=== PATIENT | female | born 1955 | race Caucasian/White ===

== ENCOUNTER → 2020-07-31 09:29 | Outpatient (BNVA) | payer OTHER, SELFPAY | PROVIDERS: PCP Internal Medicine; Referring Provider Internal Medicine; Visit Provider Anesthesiology | DX: G89.4 Chronic pain syndrome (principal); M54.5 Low back pain; M96.1 Postlaminectomy syndrome, not elsewhere classified; M46.1 Sacroiliitis, not elsewhere classified; C85.10 Unspecified B-cell lymphoma, unspecified site; Z79.891 Long term (current) use of opiate analgesic | CPT/HCPCS: 99204 ==

== ENCOUNTER 2020-08-08 12:04 | Day surgery (SDC) | payer OTHER, SELFPAY ==
[2020-08-06 09:56] VITALS: BMI 27.0
--- NOTE | 2020-08-06 14:18 | P.CONAN_ITS ---
Documented by User: Kathrine Ortiz 08/07/20 09:29 HPI - Anesthesia Eval Consult details Narrative: 64yo F for lumbar spinal cord stimulator trial Daily opioids *NO IV/BP on RIGHT* PMFSH Past Medical History Medical History Anxiety and depression Chronic pain syndrome Chronic, continuous use of opioids History of weakness of extremity Hx of basal cell carcinoma Hx of concussion Hx of lymphoma Hyperlipemia Large B-cell lymphoma Low back pain Sacroiliitis Surgical History Surgical History History of back surgery History of reconstruction of right breast History of surgery on wrist Hx of cataract extraction Hx of colonoscopy Hx of right mastectomy Social History Social History Smoking Status: Never smoker Substance Use Frequency: Chronic Longstanding Advance Directives: No Advance Directives Information Provided: No Advance Directives on File: No Meds Allergies Allergy/AdvReac Type Severity Reaction Status Date / Time clarithromycin [From Biaxin] Allergy Fainting Verified 08/08/20 12:28 simvastatin Allergy Hives Verified 08/08/20 12:28 Home Medications Medication Instructions Recorded Confirmed Type docusate sodium 100 mg capsule 100 mg PO BID 07/31/20 08/06/20 History duloxetine 60 mg capsule,delayed 60 mg PO BID 07/31/20 08/06/20 History release estradiol 10 mcg vaginal tablet 10 mcg VAGINAL 2XW 07/31/20 08/06/20 History fenofibrate 160 mg tablet 160 mg PO DAILY 07/31/20 08/06/20 History ibuprofen 800 mg tablet 800 mg PO BID PRN 07/31/20 08/06/20 History metaxalone 800 mg tablet 800 mg PO TID 07/31/20 08/06/20 History polyethylene glycol 3350 17 17 g PO DAILY 07/31/20 08/06/20 History gram/dose oral powder fentanyl 1 patch TOPICAL Q3D 08/06/20 08/06/20 History lidocaine 1 patch TOPICAL DAILY 08/06/20 08/06/20 History oxycodone 2 tab PO Q8H PRN 08/06/20 08/06/20 History Exam Exam Date and Time: August 06, 2020 1418 Height,Weight and Vital Signs: Height 5 ft 1 in Weight 64.864 kg Assessment and Plan Assessment Anesthesia Assessment: Chart Reviewed Documented by User: Mikhail Iglesias MD 08/08/20 17:26 [facility] Past Medical History Medical History Anxiety and depression Chronic pain syndrome Chronic, continuous use of opioids History of weakness of extremity Hx of basal cell carcinoma Hx of concussion Hx of lymphoma Hyperlipemia Large B-cell lymphoma Low back pain Sacroiliitis Surgical History Surgical History History of back surgery History of reconstruction of right breast History of surgery on wrist Hx of cataract extraction Hx of colonoscopy Hx of right mastectomy Social History Social History Smoking Status: Never smoker Substance Use Frequency: Chronic Longstanding Advance Directives: No Advance Directives Information Provided: No Advance Directives on File: No Meds Allergies Allergy/AdvReac Type Severity Reaction Status Date / Time clarithromycin [From Biaxin] Allergy Fainting Verified 08/08/20 12:28 simvastatin Allergy Hives Verified 08/08/20 12:28 Home Medications Medication Instructions Recorded Confirmed Type docusate sodium 100 mg capsule 100 mg PO BID 07/31/20 08/06/20 History duloxetine 60 mg capsule,delayed 60 mg PO BID 07/31/20 08/06/20 History release estradiol 10 mcg vaginal tablet 10 mcg VAGINAL 2XW 07/31/20 08/06/20 History fenofibrate 160 mg tablet 160 mg PO DAILY 07/31/20 08/06/20 History ibuprofen 800 mg tablet 800 mg PO BID PRN 07/31/20 08/06/20 History metaxalone 800 mg tablet 800 mg PO TID 07/31/20 08/06/20 History polyethylene glycol 3350 17 17 g PO DAILY 07/31/20 08/06/20 History gram/dose oral powder fentanyl 1 patch TOPICAL Q3D 10/14/20 10/14/20 History lidocaine 1 patch TOPICAL DAILY 08/06/20 08/06/20 History oxycodone 2 tab PO Q8H PRN 08/06/20 08/06/20 History Exam Airway Mallampati Class: II TM Dist: >3cm Neck ROM: Full Loose/Missing/Broken Teeth: No Heart: rrr Lungs: nl Assessment and Plan Assessment Anesthesia Assessment: Anesthesia Plan Discussed and Chart Reviewed Final Anesthetic Review NPO: Yes ASA Class: II Final Preanesthetic Review: No Changes in Pt Med Stat, Meds/Allgs Chart Reviewed, Consent Obtained/Reviewed and Anes Risks/Benef Reviewed Patient Risk: Low Procedure Risk: Low Anesthetic Plan Anesthetic Plan: MAC: Disposition: Standard PACU
[2020-08-08] VITALS (22 sets, daily range): BP systolic 135–189; BP diastolic 69–94; PULSE 87–103; RESP 8–22; TEMP 36.6; O2SAT 89–100
[2020-08-08] MEDS: Lactated Ringers 1,000 ML 100 ML IVCONT (13:06)
--- NOTE | 2020-08-08 16:48 | P.HPSUR_ITS ---
Pre-Procedural Eval Section A The patient is an INPATIENT: No The History & Physical has been completed within 30 days and I have reviewed it.: No Section B Chief Complaint: large B cell lymphoma, chronic pain syndrome Details of Present Illness: lymphoma, spinal pain Postlaminectomy syndrome Relevant Family History (Specify if Yes): No Relevant Social History: None Present Medications: None Medical History: No relevant PMH History of Previous Operations: No relevant previous surgery Allergies: Allergies Allergy/AdvReac Type Severity Reaction Status Date / Time clarithromycin [From Biaxin] Allergy Fainting Verified 08/08/20 12:28 simvastatin Allergy Hives Verified 08/08/20 12:28 Review of Systems Sugical H&P ROS: Negative: Constitution, Cardiovascular, Respiratory, Neurol ogical, Psychiatric, Allergic/Immunologic, Gastrointestinal, Genitourinary, Integumentary, Endocrine and Eyes/Ears/Nose/Throat and Yes, Specify: Hem-Onc ( lymphoma with MTs) and Musculoskeletal ( postlaminectomy syndrome) Exam Surgical H&P Exam: Normal: HEENT, Normal: Heart, Normal: Lungs, Normal: Extremities, Normal: Abdomen, Normal: Skin and Normal: Neurological Plan Diagnosis/Plan: Unchanged Patient has been examined and remains a candidate for the planned procedure
--- NOTE | 2020-08-08 17:39 | FL_ITS ---
EXAMINATION: XR FLUOROSCOPY WITH IMAGES CLINICAL INFORMATION: Spinal stimulator trial COMPARISON: None. TECHNIQUE: Fluoroscopy performed by Dr. Jong Richmond. Fluoroscopy time: 2.7 minutes DAP: 28.0 Gycm2 Images: 3 FINDINGS: There are 2 spinal stimulator leads seen overlying lower thoracic spine approximately levels of lower T7 and lower T8. IMPRESSION: Fluoroscopy for pain management procedure.
--- NOTE | 2020-08-08 18:09 | P.CONAN_ITS ---
[facility] [place] Past Medical History Medical History Anxiety and depression Chronic pain syndrome Chronic, continuous use of opioids History of weakness of extremity Hx of basal cell carcinoma Hx of concussion Hx of lymphoma Hyperlipemia Large B-cell lymphoma Low back pain Sacroiliitis Surgical History Surgical History History of back surgery History of reconstruction of right breast History of surgery on wrist Hx of cataract extraction Hx of colonoscopy Hx of right mastectomy Social History Social History Smoking Status: Never smoker Substance Use Frequency: Chronic Longstanding Advance Directives: No Advance Directives Information Provided: No Advance Directives on File: No Meds Allergies Allergy/AdvReac Type Severity Reaction Status Date / Time clarithromycin [From Biaxin] Allergy Fainting Verified 08/08/20 12:28 simvastatin Allergy Hives Verified 08/08/20 12:28 Home Medications Medication Instructions Recorded Confirmed Type docusate sodium 100 mg capsule 100 mg PO BID 07/31/20 08/06/20 History duloxetine 60 mg capsule,delayed 60 mg PO BID 07/31/20 08/06/20 History release estradiol 10 mcg vaginal tablet 10 mcg VAGINAL 2XW 07/31/20 08/06/20 History fenofibrate 160 mg tablet 160 mg PO DAILY 07/31/20 08/06/20 History ibuprofen 800 mg tablet 800 mg PO BID PRN 07/31/20 08/06/20 History metaxalone 800 mg tablet 800 mg PO TID 07/31/20 08/06/20 History polyethylene glycol 3350 17 17 g PO DAILY 07/31/20 08/06/20 History gram/dose oral powder fentanyl 1 patch TOPICAL Q3D 08/06/20 08/06/20 History lidocaine 1 patch TOPICAL DAILY 08/06/20 08/06/20 History oxycodone 2 tab PO Q8H PRN 08/06/20 08/06/20 History Exam Exam Date and Time: August 08, 2020 180 Height,Weight and Vital Signs: Height 5 ft 1 in Weight 64.864 kg Last Vital Signs Temp 98 F 08/08/20 12:32 Pulse 100 08/08/20 12:32 Resp 16 08/08/20 12:32 BP 135/69 08/08/20 12:32 Pulse Ox 96 08/08/20 12:32
--- NOTE | 2020-08-08 19:13 | PM.OP ---
Brief Operative Note Date of procedure: 08/08/20 Pre-op diagnosis: Postlaminectomy syndrome, chronic pain syndrome, lymphoma. Post-op diagnosis: same Procedure: Trial of spinal cord stimulator NEVRO. Implants: NEVRO spinal cord stimulator epidural leads. Surgeon: Jong Richmond MD Anesthesia: GLMA Estimated blood loss (mL): 0 IV fluids (mL): 1,400 Urine output (mL): 0 Pathology: none sent Condition: stable
[2020-08-08] MEDS: dexAMETHasone sod phosphate 10 MG in 0.9 % Sodium Chloride 50 ML 204 MG IV (19:33)
[2020-08-08] MEDS: fentaNYL citrate/PF 100 MCG/2 ML VIAL 25 MCG IVPUSH ×3 (19:46→20:01)
[2020-08-08] MEDS: HYDROmorphone HCl 0.5 MG/0.5 ML SYRINGE IVPUSH ×2 (20:22→20:40)
--- NOTE | 2020-08-09 14:34 | HO.POSTANES ---
Post Anesthesia Evaluation Post Anesthesia Evaluation Vital Signs: 140/80; 88;15;99%;97.8 Anesthesia: General LMA Mental Status: Awake Pain Control: Satisfactory Nausea/Vomiting: None Hydration: Adequate Anesthesia-Related Issues: No Anes. Related Issues
--- NOTE | 2020-08-20 16:59 | W.PM.OPN ---
Operative Note Operative Note Narrative: Indication for the procedure: Degenerative disc disease of lumbar spine. Spondylosis of lumbar spine with radiculopathy. Chronic pain syndrome. Spinal lumbar radiculopathy. Mr. Yanez is suffering for long period of time from degenerative disc disease of lumbar spine with radiculopathy into the left lower extremity. He had multiple injections which were fading ineffectiveness. He had medical management, physical therapy, and other procedures none of which were helping him lately with his pain. He agreed to get a trial of spinal cord stimulation. Name of the surgery: Trial of spinal cord stimulation (NEVRO) . Preoperative diagnosis: The same as indication. Postoperative diagnosis: the same as indication. Allergies CLARITHROMYCIN, SIMVASTATIN. Anesthesia GENERAL ANESTHESIA Preoperative antibiotic: Vancomycin 1 g IV. Postoperatively patient will continue with clindamycin 300 mg every 6 hours for the next 7 days. Patient will take probiotics in between his antibiotic doses. After obtaining informed consent with explanation to the patient about the risks of bleeding, infection, epidural hematoma, epidural abscess, failure to reduce the pain, PERIPHERAL NERVE ROOT IRRITATION, POST DURAL PUNCTURE HEADACHE AND OTHER UNSPECIFIED COMPLICATIONS the patient was brought to the operating room. SHe was positioned SUPINE on the STRETCH and [place] [employer] monitors were applied to the patient. SHE WAS INDUCED WITH GENERAL ANESTHESIA AND ENDOTRACHEAL INTUBATION WAS PERFORMED. After that she was transferred prone on the operating table all pressure points were protected. Time-out was performed which delineated proper procedure proper patient and proper site of the procedure , need for antibiotics , risk of fire.. The patient's back was prepped with ChloraPrep twice and the area of the procedure was draped with large abdominal fenestrated drape covering the full body of the patient. Sterilely draped C-arm was brought over operating field and sq picture of upper lumbar vertebra is was obtained on the screen. The 1st rib-bearing vertebral on the screen was considered to be T12 vertebra. Counting down from the position of this vertebra location of the L2 and L3 vertebra as were delineated. The upper margin of L1 lamina on the right was chosen as the point of entrance of epidural needle-the target. Location of the pedicle of the L2 vertebra on the right was chosen as the point of entrance of the needles. 25 gauge 1&1/2 inch needle was used to inject skin and subcutaneous tissues of the patient in the projection of bilateral lowest point of the pedicles with a mixture of local anesthetics lidocaine 2% and bupivacaine 0.5% 1-1. Attention was attracted to the lowest point of the pedicle 1st on the right. Small everett with the 11 blade scalpel was performed on the skin. After that 14 gauge 10 cm needle was inserted through the skin and started to advanced to midline epidural space in T12-L1 interspace. When needle gently touched the upper border of the right lamina close to the spinous processes, the stylet of the needle was removed and the loss of resistance syringe was connected to the needle. Further needle advancement was performed on lateral view with loss of resistance technique as a 2nd verification of the needle location. Guitar wire was inserted into the needle, the patient moved in response to this intervention. Intrathecal position of the guitar wire was suspected. The needle was withdrawn. Small amount of CSF appeared at the hub of the needle. The needle was withdrawn and pressure was applied. Then attention was concentrated on L1-L2 interspace. L3 pedicle now was chosen as the start of the needle advancement. The same 14 gauge 10 cm needle was inserted through the skin and started to advance to L1-L2 interspace. Loss of resistance technique was used when the needle appeared in in the projection of the interlaminar space, guitar wire and loss of resistance technique to air were used to locate epidural space. Epidural lead was inserted through the needle and advanced in the position of T8 vertebra slightly right to the midline.. When epidural lead reached top of T8 vertebra the advancement stopped. After that the procedure was repeated in the same very fashion on the left side. Of this time the epidural leadwas advanced to T9 bottom projection. Final position of the needles in the posterior epidural space close to midline bilaterally on AP view and in the posterior epidural space on lateral view was demonstrated on the screen and saved for further examination. The nitinol stylets were removed from the needles and the electrodes were connected to testing device. Impedance was deemed appropriate. The epidural needles were removed a and anchoring devices were advanced on the epidural leads. Anchoring devices were sutured to the skin with 2 silk sutures and then anchoring screw was used to fix the epidural leads inside the anchor. Sterile dressing using bacitracin ointment was applied. Patient was transferred to the stretcher, positioned supine, awakened, extubated and transferred to PACU for recovery. Findings: Nonspecific. Fluids: 600 mL IV. EBL: None. Dictating physician: MD Marisol. Operating physician: MD Marisol. DISPOSITION: Patient tolerated procedure very well, she was transferred to recovery. She reported severe pain in bilateral lower extremities mostly on the left. That would correspond to guitar wire spreading into the left side of the patient spinal canal. Because of the lack of the resources to treat this patient at night it [facility] the patient was transferred to [facility] for further care.
== END 2020-08-08 23:59 | disposition home or self-care (01) ==
PROVIDERS: Anesthesiology; PCP Internal Medicine; Visit Provider Internal Medicine
PROC: (CPT 63650; principal; 2020-08-08 13:20)
DX: M96.1 Postlaminectomy syndrome, not elsewhere classified (principal); M47.26 Other spondylosis with radiculopathy, lumbar region; G89.4 Chronic pain syndrome; G89.18 Other acute postprocedural pain; M79.605 Pain in left leg; M79.604 Pain in right leg; C83.30 Diffuse large B-cell lymphoma, unspecified site; Z79.899 Other long term (current) drug therapy
CPT/HCPCS: 63650 ×2; C1897; J0690; J1100; J1170; J1200; J2405; J3010

== ENCOUNTER → 2020-08-14 11:57 | Outpatient (BNVA) | payer OTHER, SELFPAY | PROVIDERS: PCP Internal Medicine; Referring Provider Internal Medicine; Visit Provider Anesthesiology | DX: C85.10 Unspecified B-cell lymphoma, unspecified site (principal); M54.5 Low back pain; G89.4 Chronic pain syndrome; M46.1 Sacroiliitis, not elsewhere classified; Z79.891 Long term (current) use of opiate analgesic | CPT/HCPCS: 99214 ==

== ENCOUNTER 2021-10-08 11:15 | Outpatient (REF) | payer OTHER, SELFPAY ==
[2021-10-08 12:20] LABS: Influenza A PCR NEGATIVE (Negative); Influenza B PCR NEGATIVE (Negative); Resp Syncy Virus RNA Qual PCR NEGATIVE (Negative); SARS COV2 PCR INHOUSE NEGATIVE (Negative)
== END 2021-10-08 11:16 | disposition home or self-care (01) ==
LOC: HO.LNP 11:15
PROVIDERS: Visit Provider Physician Assistant
DX: Z20.822 Contact with and (suspected) exposure to COVID-19 (principal); R05.9 Cough, unspecified
CPT/HCPCS: 0241U

== ENCOUNTER 2021-10-27 10:08 | Outpatient (REF) | payer OTHER, SELFPAY ==
--- NOTE | ~2021-10-27 | XR_ITS ---
EXAMINATION: XR CHEST CLINICAL INFORMATION: Chronic cough COMPARISON: None TECHNIQUE: 2 views of the chest were obtained. FINDINGS: No significant abnormality is noted involving the heart, lungs, mediastinum, bony thorax or soft tissues. XR/XR chest 2V IMPRESSION: Unremarkable chest examination.
[2021-10-27 13:17] LABS: Influenza A PCR NEGATIVE (Negative); Influenza B PCR NEGATIVE (Negative); Resp Syncy Virus RNA Qual PCR NEGATIVE (Negative); SARS COV2 PCR INHOUSE NEGATIVE (Negative)
== END 2021-10-27 10:09 | disposition home or self-care (01) ==
LOC: HO.HMGCX 10:08
PROVIDERS: PCP Internal Medicine; Visit Provider Physician Assistant
DX: Z20.822 Contact with and (suspected) exposure to COVID-19 (principal); R05.3 Chronic cough; B34.9 Viral infection, unspecified
CPT/HCPCS: 0241U; 36415; 71046